=== PATIENT | female | born 1950 | race Caucasian/White ===

== ENCOUNTER 2025-06-29 20:34 | Emergency (ER) | payer MEDICARE, SELFPAY ==
[2025-06-29 20:34] VITALS: BMI 31.6
[2025-06-29 20:38] VITALS: BP 173/68
[2025-06-29 20:45] LABS: Glucose - Point of Care 133 mg/dl (70-99)
[2025-06-29 20:49] LABS: Hematocrit 38.1 % (37.0-47.0); Hemoglobin 12.6 g/dL (12.0-16.0); Mean Corp Hgb Conc. 33.1 g/dL (33.0-37.0); Mean Corpuscular Volume 91.8 fL (81.0-99.0); Nucleated Red Blood Cells % 0 %; Platelet Count 254 10^3/uL (130-400); Red Cell Dist. Width 13.2 % (11.5-14.5)
[2025-06-29 21:00] VITALS: BP 156/68
[2025-06-29 21:11] LABS: Troponin I < 0.012 ng/ml
[2025-06-29 21:12] LABS: Blood Urea Nitrogen 33 mg/dl (7-17); Calcium 9.3 mg/dl (8.4-10.2); Carbon Dioxide 22 mmol/L (22-30); Chloride 106 mmol/L (98-107); Estimated Creatinine Clearance 53 ml/min; Glucose 121 mg/dl (70-99); Sodium 136 mmol/L (135-145); eGFR > 60.00
--- NOTE | 2025-06-29 21:36 | ED.GENMED ---
History of Present Illness
General
Chief Complaint: Weakness
Source: patient
Time Seen by Provider: 06/29/25 21:26
History of Present Illness
History of Present Illness:
75-year-old female with past medical history of hyperlipidemia presenting to the emergency department for evaluation after she was at [facility] this evening and while kneeling in the pew she started to feel diaphoretic, lightheaded and as if she were
going to have a bowel movement, a nurse who was at the [facility] with her at the time went to go get her some water and laid her down on the pew, patient never lost consciousness but was recommended to come to the ER for further evaluation. At time of
my exam patient reports all of her symptoms have fully resolved she denies any history of similar. She denies any chest pain, shortness of breath, nausea or vomiting, fevers or infectious symptoms or any other concerns. No changes to any
medications recently. She notes that she did eat dinner prior to going to [facility] around 530 this evening.
Past History
Past History
ED Past Medical History: GERD, Hypercholesterolemia and Other (Irritable bowel syndrome, diverticulitis)
ED Past Surgical History: Orthopedic (left knee replacement, right foot surgery for heel spur)
Social History
Tobacco: Non-smoker
Alcohol: None
Drug: None
Personal:
Living: with family
Employment: Employed
Family History
Family History: Other (Noncontributory)
Review of Systems
Review of Systems
All Other Systems: ROS reviewed and negative except as documented in HPI and ROS
Phy Exam
Physical Exam
Physical Exam:
GENERAL: Alert , in no apparent distress
HEAD: Normocephalic atraumatic
EYE: conjunctiva clear
NECK: Supple
ENT: o/p clr, mmm.
CARDIAC: Regular rate and rhythm
LUNGS: Clear breath sounds bilaterally, no acute respiratory distress, no wheezes/rales/rhonchi
NEUROLOGICAL: Alert and oriented
SKIN: Warm and dry, skin intact.
MUSCULOSKELETAL: well perfused.
PSYCH: Normal and appropriate interaction.
Scores
Heart Failure Risk
Heart Failure Risk Score: Not Applicable
Heart Score for Chest Pain Patients
STEMI patient?: Not applicable
Withdrawal Assessment of Alcohol
Withdrawal Assessment Completed?: Not applicable
Course
Orders/Labs/Results
Orders:
Orders
06/29/25 20:39
EKG [Electrocardiogram (*1)] Urgent
Reason for Study: Syncope
EKG- Treatment ONCE
06/29/25 20:40
Electrocardiogram (*1) Urgent
Reason for Study: Other
Other Reason for Exam: Possible Stroke
Bedside Glucose- Treatment ONCE
Cardiac Monitoring- Treatment ONCE
IV Insert/Care/Rem.- Treatment PRN
Vital Signs As Directed
Frequency: Other
Weight As Directed
Frequency: Once
Comment: ZERO STRETCHER SCALE FOR ACCURATE WEIGHT
06/29/25 20:41
EKG- Treatment ONCE
06/29/25 20:42
Basic Metabolic Panel Urgent
Complete Blood Count/With Diff Urgent
Troponin I Urgent
Abnormal Lab Results
06/29/25 06/29/25
20:42 20:44
RBC 4.15 L 10^6/uL
(4.20-5.40)
Eosinophils % 7.5 H %
(0-6)
BUN 33 H mg/dl
(7-17)
Glucose 121 H mg/dl
(70-99)
POC Glucose 133 H mg/dl
(70-99)
06/29/25 20:42
06/29/25 20:42
Vital Signs
Initial and Last Documented VS:
Initial Vital Signs
Pulse Resp Pulse Ox
75 20 95
06/29/25 20:36 06/29/25 20:36 06/29/25 20:36
Last Documented Vital Signs
Temp Pulse Resp BP Pulse Ox
98.3 F 75 17 173/68 96
06/29/25 20:44 06/29/25 20:38 06/29/25 20:38 06/29/25 20:38 06/29/25 21:37
MDM/Problems Addressed
Differential Diagnosis Includes:
Vagal event
ACS
Cardiac arrhythmia
Orthostasis
Medication interaction
Electrolyte imbalance
MDM/Problems Addressed:
75-year-old female presenting to the ER with what appears to be a vagal reaction, patient fully asymptomatic at time of my exam. Mildly hypertensive, vitals otherwise reassuring. EKG done in triage nonischemic and without ectopy. Labs reassuring.
Plan for discharge home, discussed with patient that if symptoms continue or return or more prevalent she may need follow-up with cardiology for Holter monitor.
*Pulse Oximetry
SaO2: 96
Oxygen Mode of Delivery: Room air
Patient hypoxic: no
*EKG
Heart Rate: 70
Rate: normal
Rhythm: sinus
[place]: normal axis
Ischemia: no ischemia
*[employer] Interpretation
Rate: normal
Heart Rate: 77
Rhythm: sinus
*Critical Care Note
Total Time (30-74mins, 75-104mins- exclusive of procedures): Not Applicable
Patient Management
Escalation/DeEscalation of care consider admission/obs:
Patient without any ectopy or abnormalities on telemetry, feels comfortable being discharged home. Aware of return precautions the ER but otherwise stable for discharge.
ED Attending Note
-
Portions of this chart may have been created with voice recognition software.� Occasional wrong word or��sound alike� substitutions may have occurred due to the inherent limitations of voice recognition software.
Discharge Plan
Departure
Patient Disposition: Home (Routine Discharge)
Date of Disposition: 06/29/25
Time of Disposition: 22:02
Patient with high blood pressure during this ER visit?: Yes
Discharge Problem:
Vagal reaction
Instructions: Near Fainting (DC)
Prescriptions:
No Action
Fish Oil 1,000 MG capsule
1 cap PO DAILY
simvastatin 20 MG tablet
20 mg PO HS
omeprazole [Prilosec] 20 MG capsule,delayed release(DR/EC)
20 mg PO DAILY
multivitamin with folic acid [Tab-A-Alex] 1 TABLET tablet
1 tab PO DAILY
lisinopril 40 mg Tablet
40 mg PO DAILY
eplerenone 50 mg Tablet
50 mg
torsemide 5 mg Tablet
5 mg PO DAILY
Interventions
Interventions:
*Risk Screen - Suicide Last Done: 06/29/25 20:47
*General Assessment Last Done: 06/29/25 20:47
*Neglect/Abuse Screening Last Done: 06/29/25 20:47
*ED- Fall Risk Assessment Last Done: 06/29/25 20:47
*ED COVID-19 Vaccine History Last Done: 06/29/25 20:47
*ED Influenza Vaccine History Last Done: 06/29/25 20:47
ED- Cardiac Assessment Last Done: 06/29/25 20:48
ED- Neurological Assessment Last Done: 06/29/25 20:48
ED- Pulmonary Assessment Last Done: 06/29/25 20:48
Discharge Date and Time
Print Language: SAMMARINESE
== END 2025-06-29 22:17 | disposition home or self-care (01) ==
LOC: EMR 20:34
PROVIDERS: EMERGENCY PHYSICIAN Emergency Medicine; FAMILY PHYSICIAN Physician Assistant Medical
DX: R55 Syncope and collapse (principal); R42 Dizziness and giddiness; E78.00 Pure hypercholesterolemia, unspecified
CPT/HCPCS: 99284; 80048; 82962; 84484; 85025; 93005